=== PATIENT | male | born 1965 | race Caucasian/White ===

== ENCOUNTER 2021-03-15 13:11 | Emergency (ER) | payer OTHER ==
[~2021-03-15] VITALS: Ht 188 cm; Wt 138.3 kg
[2021-03-15 13:23] VITALS: BP_SYST 153
[2021-03-15] MEDS ORDERED: BACITRACIN 1 GM OINT TP ONE ×2 (14:58→15:00)
[2021-03-15] MEDS ORDERED: DIPH-TET-PERTUS Vaccine 0.5 ML VIAL (ADACEL) I.M. ONE (15:00)
[2021-03-15] MEDS ORDERED: POVI88.72 TP (15:02)
[2021-03-15] MEDS ORDERED: NEOM28.36 TP (15:02)
[2021-03-15 15:26] VITALS: BP_SYST 149
== END 2021-03-15 15:25 | disposition home or self-care (01) ==
LOC: SED 13:11
DX: S61.411A Laceration without foreign body of right hand, initial encounter (principal); Z79.899 Other long term (current) drug therapy; W45.8XXA Other foreign body or object entering through skin, initial encounter; Y93.64 Activity, baseball; Y92.89 Other specified places as the place of occurrence of the external cause; Y99.8 Other external cause status
CPT/HCPCS: 90715; 99283

== ENCOUNTER 2021-11-18 03:22 | Inpatient (IN) | payer OTHER ==
[2021-11-18] VITALS (7 sets, daily range): BP systolic 112–160
[~2021-11-18] VITALS: Ht 185.4 cm; Wt 137.9 kg
[~2021-11-18 03:22] MED LIST: NEOM28.36 TP; POVI88.72 TP
[2021-11-18 04:09] LABS: ANION GAP 10 (5-15); BASOPHILS # (AUTO) 0.2 K/uL (0.0-0.2); BASOPHILS % (AUTO) 2.8 % (0.0-2.0); CALCIUM 8.3 mg/dL (8.4-11.0); CHLORIDE 103 mmol/L (98-107); CREATININE 1.25 mg/dL (0.55-1.30); EOSINOPHILS # (AUTO) 0.1 K/uL (0.0-0.4); EOSINOPHILS % (AUTO) 0.8 % (0.0-4.0); GLUCOSE 103 mg/dL (70-99); HEMATOCRIT 40.9 % (36-54); LYMPHOCYTES # (AUTO) 0.5 K/uL (1.0-5.5); LYMPHOCYTES % (AUTO) 6.4 % (20.5-51.5); MEAN CORPUSCULAR HEMOGLOBIN 29 pg (27-31); MEAN CORPUSCULAR HGB CONC 34 % (32-36); MEAN CORPUSCULAR VOLUME 83 fL (79.0-98.0); MONOCYTES # (AUTO) 0.9 K/uL (0.0-1.0); MONOCYTES % (AUTO) 11.6 % (1.7-9.3); NEUTROPHILS # (AUTO) 5.9 K/uL (1.8-7.7); NEUTROPHILS % (AUTO) 78.4 % (40.0-70.0); PLATELET COUNT (AUTO) 200 K/uL (130-430); POTASSIUM 3.8 mmol/L (3.5-5.1); RED BLOOD CELL COUNT(AUTO) 4.91 MIL/uL (4.2-6.2); RED CELL DISTRIBUTION WIDTH 13.7 % (9.0-15.0); SODIUM SERUM 136 mmol/L (136-145); UREA NITROGEN, BLOOD 21 mg/dL (8-21); WHITE BLOOD COUNT (AUTO) 7.5 K/uL (4.8-10.8)
[2021-11-18 04:17] LABS: ALANINE AMINOTRANSFERASE 26 U/L (12-78); ALBUMIN 3.5 g/dL (3.4-4.8); ASPARTATE AMINOTRANSFERASE 17 U/L (10-37); TOTAL BILIRUBIN 0.5 mg/dL (0.0-1.0)
[2021-11-18 04:18] LABS: PROTHROMBIN TIME 10.7 SECS (9.5-12.5)
[2021-11-18 04:19] LABS: GFR AFRICAN AMERICAN 77 mL/min (>90)
[2021-11-18 04:47] LABS: FIBRINOGEN 366 mg/dL (200-400)
[2021-11-18 04:56] LABS: C-REACTIVE PROTEIN QUANT 5.7 mg/dL (0-0.5)
[2021-11-18] MEDS ORDERED: cefTRIAXone 1 GM IVPB PREMIX 50 ML IV ONE (06:15)
[2021-11-18] MEDS ORDERED: AZITHROMYCIN 250 MG TABLET PO ONE (06:15)
[2021-11-18] MEDS ORDERED: DEXAMETHASONE SOD PHOSPHATE 4 MG/ML VIAL IVP ONE (06:15)
[2021-11-18 06:19] LABS: BILIRUBIN,URINE NEGATIVE (NEGATIVE); CLARITY/URINE CLEAR (CLEAR); COLOR,URINE YELLOW (YELLOW); GLUCOSE,URINE NEGATIVE (NEGATIVE); KETONES,URINE NEGATIVE (NEGATIVE); LEUKOCYTE ESTERASE ,URINE NEGATIVE (NEGATIVE); NITRITE, URINE NEGATIVE (NEGATIVE); PROTEIN URINE NEGATIVE (NEGATIVE); UROBILINOGEN,URINE 0.2 (0.2-1.0)
[2021-11-18 06:24] LABS: BLOOD, URINE TRACE (NEGATIVE)
[2021-11-18 06:28] LABS: BACTERIA,URINE FEW /HPF (None Seen); RBC,URINE 0-3 /HPF (0-3); WBC,URINE 0-3 /HPF (0-3)
[2021-11-18] MEDS ORDERED: NALOXONE HCL 0.4 MG/ML AMP (NARCAN) IVP PRN ×2 (08:15)
[2021-11-18] MEDS ORDERED: POTASSIUM CHLORIDE 20 MEQ TAB.PRT.SR PO PRN (08:15)
[2021-11-18] MEDS ORDERED: ZOLPIDEM TARTRATE 5 MG TABLET PO PRN (08:15)
[2021-11-18] MEDS ORDERED: LORazepam 2 MG/ML VIAL IVP PRN (08:15)
[2021-11-18] MEDS ORDERED: MAGNESIUM SULFATE 50 ML IV PRN (08:15)
[2021-11-18] MEDS ORDERED: ONDANSETRON HCL 4 MG/2 ML VIAL IVP PRN (08:15)
[2021-11-18] MEDS ORDERED: MORPHINE 2 MG/ML INJ. SYRINGE IVP PRN ×2 (08:15)
[2021-11-18] MEDS ORDERED: ACETAMINOPHEN 325 MG TABLET PO PRN ×2 (08:15→09:00)
[2021-11-18] MEDS ORDERED: MUPIROCIN 2% TOPICAL OINTMENT 22 GM NS PRN (08:15)
[2021-11-18] MEDS ORDERED: DOCUSATE SODIUM 100 MG CAPSULE PO PRN (08:15)
[2021-11-18] MEDS: ENOXAPARIN SODIUM 40 MG/0.4 ML SYRINGE SUBCUT SCH ×2 (10:18→19:00)
[2021-11-18] MEDS: DEXAMETHASONE SOD PHOSPHATE 10 MG/ML VIAL IVP SCH (10:19)
[2021-11-18] MEDS ORDERED: ALBUTEROL MDI INHALATION 8 GM INH INH PRN (15:15)
[2021-11-18] MEDS: AZITHROMYCIN 500 MG in NS 250 ML IV SCH (23:50)
[2021-11-19 00:15] VITALS: BP_SYST 130
[2021-11-19 06:30] LABS: BASOPHILS % (AUTO) 0.3 % (0.0-2.0); HEMATOCRIT 44.8 % (36-54); HEMOGLOBIN 15.1 g/dL (14.0-18.0); LYMPHOCYTES # (AUTO) 1.4 K/uL (1.0-5.5); MEAN CORPUSCULAR HEMOGLOBIN 29 pg (27-31); MEAN CORPUSCULAR HGB CONC 34 % (32-36); MEAN CORPUSCULAR VOLUME 85 fL (79.0-98.0); MONOCYTES # (AUTO) 0.9 K/uL (0.0-1.0); MONOCYTES % (AUTO) 9.4 % (1.7-9.3); NEUTROPHILS # (AUTO) 7.6 K/uL (1.8-7.7); NEUTROPHILS % (AUTO) 76.3 % (40.0-70.0); PLATELET COUNT (AUTO) 195 K/uL (130-430)
[2021-11-19 06:42] LABS: CALCIUM 8.3 mg/dL (8.4-11.0); CREATININE 1.04 mg/dL (0.55-1.30); POTASSIUM 3.7 mmol/L (3.5-5.1)
[2021-11-19 08:00] VITALS: BP_SYST 110
[2021-11-19] MEDS: DEXAMETHASONE SOD PHOSPHATE 10 MG/ML VIAL IVP SCH (09:09)
[2021-11-19] MEDS: ENOXAPARIN SODIUM 40 MG/0.4 ML SYRINGE SUBCUT SCH (09:09)
[2021-11-19] MEDS: NACL 0.9% 1,000 ML IV SCH ×2 (09:19→19:52)
[2021-11-19 12:36] VITALS: BP_SYST 131
[2021-11-19 16:33] VITALS: BP_SYST 137
[2021-11-19 20:00] VITALS: BP_SYST 132; BP_SYST 160
[2021-11-20 00:13] VITALS: BP_SYST 137
[2021-11-20] MEDS: AZITHROMYCIN 500 MG in NS 250 ML IV SCH (05:37)
[2021-11-20] MEDS: NACL 0.9% 1,000 ML IV SCH ×3 (05:38→18:06)
[2021-11-20 06:43] LABS: BASOPHILS % (AUTO) 0.6 % (0.0-2.0); EOSINOPHILS % (AUTO) 0.1 % (0.0-4.0); HEMOGLOBIN 14.8 g/dL (14.0-18.0); LYMPHOCYTES # (AUTO) 1.6 K/uL (1.0-5.5); MEAN CORPUSCULAR HEMOGLOBIN 29 pg (27-31); MEAN CORPUSCULAR HGB CONC 34 % (32-36); MEAN CORPUSCULAR VOLUME 83 fL (79.0-98.0); MONOCYTES # (AUTO) 0.6 K/uL (0.0-1.0); MONOCYTES % (AUTO) 11.4 % (1.7-9.3); NEUTROPHILS # (AUTO) 3.2 K/uL (1.8-7.7); NEUTROPHILS % (AUTO) 57.9 % (40.0-70.0); PLATELET COUNT (AUTO) 214 K/uL (130-430); RED BLOOD CELL COUNT(AUTO) 5.18 MIL/uL (4.2-6.2); RED CELL DISTRIBUTION WIDTH 13.8 % (9.0-15.0); WHITE BLOOD COUNT (AUTO) 5.4 K/uL (4.8-10.8)
[2021-11-20 07:17] LABS: ALBUMIN 3.3 g/dL (3.4-4.8); C-REACTIVE PROTEIN QUANT 2.5 mg/dL (0-0.5); CALCIUM 7.9 mg/dL (8.4-11.0); CREATININE 0.98 mg/dL (0.55-1.30); POTASSIUM 3.6 mmol/L (3.5-5.1); TOTAL BILIRUBIN 0.2 mg/dL (0.0-1.0)
[2021-11-20 08:00] VITALS: BP_SYST 157
[2021-11-20] MEDS: DEXAMETHASONE SOD PHOSPHATE 10 MG/ML VIAL IVP SCH (10:34)
[2021-11-20] MEDS: ENOXAPARIN SODIUM 40 MG/0.4 ML SYRINGE SUBCUT SCH (10:35)
[2021-11-20 12:37] VITALS: BP_SYST 135
[2021-11-20 16:37] VITALS: BP_SYST 126
[2021-11-20 20:00] VITALS: BP_SYST 131
[2021-11-21] MEDS: AZITHROMYCIN 500 MG in NS 250 ML IV SCH ×2 (00:14→23:14)
[2021-11-21] MEDS: NACL 0.9% 1,000 ML IV SCH ×2 (04:55→15:47)
[2021-11-21 06:45] LABS: BASOPHILS % (AUTO) 0.3 % (0.0-2.0); EOSINOPHILS % (AUTO) 0.1 % (0.0-4.0); HEMATOCRIT 41.8 % (36-54); HEMOGLOBIN 14.4 g/dL (14.0-18.0); LYMPHOCYTES % (AUTO) 27.3 % (20.5-51.5); MEAN CORPUSCULAR HEMOGLOBIN 29 pg (27-31); MEAN CORPUSCULAR HGB CONC 34 % (32-36); MEAN CORPUSCULAR VOLUME 83 fL (79.0-98.0); MONOCYTES # (AUTO) 0.8 K/uL (0.0-1.0); MONOCYTES % (AUTO) 10.2 % (1.7-9.3); NEUTROPHILS # (AUTO) 4.6 K/uL (1.8-7.7); NEUTROPHILS % (AUTO) 62.1 % (40.0-70.0); PLATELET COUNT (AUTO) 227 K/uL (130-430); RED BLOOD CELL COUNT(AUTO) 5.03 MIL/uL (4.2-6.2); RED CELL DISTRIBUTION WIDTH 13.5 % (9.0-15.0); WHITE BLOOD COUNT (AUTO) 7.4 K/uL (4.8-10.8)
[2021-11-21 07:04] LABS: ALBUMIN 3.3 g/dL (3.4-4.8); BILIRUBIN,DIRECT 0.4 mg/dL (0.0-0.3); CALCIUM 7.9 mg/dL (8.4-11.0); POTASSIUM 4.1 mmol/L (3.5-5.1); TOTAL BILIRUBIN 0.3 mg/dL (0.0-1.0)
[2021-11-21 07:56] VITALS: BP_SYST 131
[2021-11-21 08:00] VITALS: BP_SYST 132
[2021-11-21] MEDS: DEXAMETHASONE SOD PHOSPHATE 10 MG/ML VIAL IVP SCH (09:05)
[2021-11-21] MEDS: ENOXAPARIN SODIUM 40 MG/0.4 ML SYRINGE SUBCUT SCH (09:06)
[2021-11-21] MEDS: PANTOPRAZOLE SODIUM 40 MG TAB PO SCH (09:53)
[2021-11-21 12:00] VITALS: BP_SYST 130
[2021-11-21 16:40] VITALS: BP_SYST 131
[2021-11-21 19:48] VITALS: BP_SYST 127
[2021-11-21 23:18] VITALS: BP_SYST 128
[2021-11-22] MEDS: NACL 0.9% 1,000 ML IV SCH ×2 (03:20→14:34)
[2021-11-22 07:12] LABS: BASOPHILS % (AUTO) 0.3 % (0.0-2.0); EOSINOPHILS % (AUTO) 0.2 % (0.0-4.0); HEMATOCRIT 42.1 % (36-54); HEMOGLOBIN 14.6 g/dL (14.0-18.0); LYMPHOCYTES # (AUTO) 2.2 K/uL (1.0-5.5); LYMPHOCYTES % (AUTO) 24.5 % (20.5-51.5); MEAN CORPUSCULAR HEMOGLOBIN 29 pg (27-31); MEAN CORPUSCULAR HGB CONC 35 % (32-36); MEAN CORPUSCULAR VOLUME 83 fL (79.0-98.0); MONOCYTES # (AUTO) 0.8 K/uL (0.0-1.0); MONOCYTES % (AUTO) 8.5 % (1.7-9.3); NEUTROPHILS % (AUTO) 66.5 % (40.0-70.0); PLATELET COUNT (AUTO) 244 K/uL (130-430); RED BLOOD CELL COUNT(AUTO) 5.07 MIL/uL (4.2-6.2); RED CELL DISTRIBUTION WIDTH 13.5 % (9.0-15.0)
[2021-11-22 07:34] LABS: ALBUMIN 3.3 g/dL (3.4-4.8); BILIRUBIN,DIRECT 0.4 mg/dL (0.0-0.3); CREATININE 0.98 mg/dL (0.55-1.30); POTASSIUM 3.9 mmol/L (3.5-5.1); TOTAL BILIRUBIN 0.3 mg/dL (0.0-1.0)
[2021-11-22 08:00] VITALS: BP_SYST 134
[2021-11-22] MEDS ORDERED: DEC4 PO (08:42)
[2021-11-22] MEDS ORDERED: DOXY100T2 PO (08:42)
[2021-11-22] MEDS ORDERED: APIX2.5T PO (08:42)
[2021-11-22] MEDS: DEXAMETHASONE SOD PHOSPHATE 10 MG/ML VIAL IVP SCH (08:55)
[2021-11-22] MEDS: PANTOPRAZOLE SODIUM 40 MG TAB PO SCH (08:55)
[2021-11-22] MEDS: ENOXAPARIN SODIUM 40 MG/0.4 ML SYRINGE SUBCUT SCH (08:56)
[2021-11-22 12:00] VITALS: BP_SYST 130
[2021-11-22 15:42] VITALS: BP_SYST 129
[2021-11-22 16:36] VITALS: BP_SYST 130
== END 2021-11-22 17:30 | disposition home or self-care (01) | DRG 177 ==
LOC: SED 03:22 → SMU 06:14
PROVIDERS: ADMIT General Practice; ATTEND General Practice
PROC: XW033E5 Introduction of Remdesivir Anti-infective into Peripheral Vein, Percutaneous Approach, New Technology Group 5 (ICD-10-PCS; principal; 2021-11-19)
DX: U07.1 COVID-19 (principal); J96.01 Acute respiratory failure with hypoxia; J12.82 Pneumonia due to coronavirus disease 2019; Z68.41 Body mass index [BMI] 40.0-44.9, adult; E66.01 Morbid (severe) obesity due to excess calories; K21.9 Gastro-esophageal reflux disease without esophagitis; F17.200 Nicotine dependence, unspecified, uncomplicated; E83.51 Hypocalcemia; Z90.49 Acquired absence of other specified parts of digestive tract
CPT/HCPCS: 36415; 36600; 71045; 80048; 80053; 80076; 81000; 82550; 82803-TC; 83036; 83605; 83615; 83735; 83880; 84484; 85025; 85379; 85384; 85610-TC; 85730-TC; 86140; 87040; 87086; 93005; 94664; 94760; 96365; 99291; J0456; J0696; J1100; J1650; J7050; J7060; Q0144

== ENCOUNTER 2022-03-13 07:59 | Emergency (ER) | payer OTHER ==
[~2022-03-13] VITALS: Ht 188 cm; Wt 158.8 kg
[~2022-03-13 07:59] MED LIST changes: +APIX2.5T PO; +DEC4 PO; +DOXY100T2 PO; -NEOM28.36 TP; -POVI88.72 TP
[2022-03-13 08:10] VITALS: BP_SYST 143
--- NOTE | 2022-03-13 08:30 | NUR ---
PT RECEIVED FROM TRIAGE NURSE. PT IS HERE WITH C/O NECK PAIN SINCE LAST NIGHT 9/10 PAIN. PT IS AAOX4. ON R/A. DENIES N/V/D/C. NORMAL S1S2. DISTAL PULSES NORMAL. SKIN CDI, NO EDEMA. SIDERAILS UP X2.
--- NOTE | 2022-03-13 08:45 | NUR ---
DR. BHATIA AT BEDSIDE TO ASSESS PT.
[2022-03-13] MEDS ORDERED: DIAZEPAM 5 MG TABLET (VALIUM) PO ONE (09:00)
[2022-03-13] MEDS ORDERED: IBUPROFEN 600 MG TABLET PO ONE (09:00)
[2022-03-13] MEDS ORDERED: MORPHINE 4 MG INJ. 4 MG/ML VIAL IM ONE (09:00)
[2022-03-13] MEDS ORDERED: METH-634 PO (09:06)
[2022-03-13] MEDS ORDERED: OXYC-128 PO (09:06)
[2022-03-13] MEDS ORDERED: IBUP-1969 PO (09:06)
[2022-03-13] MEDS ORDERED: MORPHINE 2 MG/ML INJ. SYRINGE ONE (09:08)
--- NOTE | 2022-03-13 09:12 | NUR ---
PT TAKEN TO CT SCAN. IVP 8MG IVP GIVEN FOR NECK PAIN. MORPHINE 8MG UNAVAILABLE, OVER-RIDED MED AND DESIREE PRATT WITNESSED.
[2022-03-13 12:10] VITALS: BP_SYST 140
--- NOTE | 2022-03-13 12:10 | NUR ---
Patient given written and verbal discharge instructions and verbalizes understanding. ER MD discussed with patient the results and treatment provided. Patient in stable condition. ID arm band removed. IV catheter removed intact and dressing applied, no active bleeding. Rx of IBUPROFEN, METHOCARBAMOL, OXYDONDONE given. Patient educated on pain management and to follow up with PMD. Pain Scale 0/10. Opportunity for questions provided and answered. Medication side effect fact sheet provided.
== END 2022-03-13 12:10 | disposition home or self-care (01) ==
LOC: SED 07:59
DX: M62.838 Other muscle spasm (principal); M54.2 Cervicalgia; I10 Essential (primary) hypertension; Z79.899 Other long term (current) drug therapy
CPT/HCPCS: 99285; 72125; 76376; 96372; J2270

== ENCOUNTER 2022-05-15 22:18 | Inpatient (IN) | payer OTHER ==
[~2022-05-15] VITALS: Ht 188 cm; Wt 140.6 kg
[~2022-05-15 22:18] MED LIST changes: +IBUP-1969 PO; +METH-634 PO; +OXYC-128 PO
[2022-05-15] MEDS ORDERED: ALBUTEROL SULFATE 0.083% 2.5 MG/3 ML VIAL.NEB INH ONE (22:45)
[2022-05-15 23:00] VITALS: BP_SYST 152
[2022-05-15 23:16] LABS: BASOPHILS # (AUTO) 0.1 K/uL (0.0-0.2); MEAN CORPUSCULAR VOLUME 83 fL (79.0-98.0); MONOCYTES # (AUTO) 0.8 K/uL (0.0-1.0); RED CELL DISTRIBUTION WIDTH 14.1 % (9.0-15.0)
[2022-05-15 23:25] LABS: ANION GAP 12 (5-15); CALCIUM 8.3 mg/dL (8.4-11.0); CHLORIDE 100 mmol/L (98-107); CREATININE 1.17 mg/dL (0.55-1.30); GLUCOSE 96 mg/dL (70-99); UREA NITROGEN, BLOOD 14 mg/dL (8-21)
[2022-05-15 23:31] LABS: BASOPHILS % (AUTO) 0.8 % (0.0-2.0); EOSINOPHILS % (AUTO) 0.1 % (0.0-4.0); HEMATOCRIT 41.2 % (36-54); HEMOGLOBIN 14.2 g/dL (14.0-18.0); LYMPHOCYTES % (AUTO) 14.8 % (20.5-51.5); MEAN CORPUSCULAR HEMOGLOBIN 29 pg (27-31); MEAN CORPUSCULAR HGB CONC 34 % (32-36); NEUTROPHILS # (AUTO) 5.1 K/uL (1.8-7.7); NEUTROPHILS % (AUTO) 72.3 % (40.0-70.0); PLATELET COUNT (AUTO) 240 K/uL (130-430); RED BLOOD CELL COUNT(AUTO) 4.95 MIL/uL (4.2-6.2)
[2022-05-15 23:32] LABS: ALANINE AMINOTRANSFERASE 24 U/L (12-78); ALBUMIN 3.7 g/dL (3.4-4.8); ASPARTATE AMINOTRANSFERASE 18 U/L (10-37); TOTAL BILIRUBIN 0.5 mg/dL (0.0-1.0)
[2022-05-15 23:37] LABS: GFR AFRICAN AMERICAN 83 mL/min (>90)
[2022-05-15] MEDS ORDERED: ACETAMINOPHEN 325 MG TABLET PO ONE (23:45)
[2022-05-16] MEDS ORDERED: KETOROLAC TROMETHAMINE 30 MG VIAL IVP ONE (01:45)
[2022-05-16] MEDS ORDERED: OSELTAMIVIR PHOSPHATE 75 MG CAPSULE PO ONE (03:30)
[2022-05-16] MEDS ORDERED: OMEP20TA20 (07:24)
[2022-05-16] MEDS ORDERED: ONDANSETRON HCL 4 MG/2 ML VIAL IVP PRN (08:00)
[2022-05-16] MEDS ORDERED: MAGNESIUM SULFATE 50 ML IV PRN (08:00)
[2022-05-16] MEDS ORDERED: POTASSIUM CHLORIDE 20 MEQ TAB.PRT.SR PO PRN (08:00)
[2022-05-16] MEDS ORDERED: MORPHINE 2 MG/ML INJ. SYRINGE IVP PRN ×2 (08:00)
[2022-05-16] MEDS ORDERED: DOCUSATE SODIUM 100 MG CAPSULE PO PRN (08:00)
[2022-05-16] MEDS ORDERED: MUPIROCIN 2% TOPICAL OINTMENT 22 GM NS PRN (08:00)
[2022-05-16] MEDS ORDERED: IPRATROPIUM/ALBUTEROL SULFATE 3 ML AMPUL.NEB (DUONEB) INH PRN (09:30)
[2022-05-16] MEDS ORDERED: methylPREDNISolone SOD SUCC/PF 62.5 MG/ML VIAL IVP ONE (09:45)
[2022-05-16] MEDS ORDERED: BUDESONIDE 0.5 MG/2 ML AMPUL.NEB INH ONE (09:45)
[2022-05-16 10:00] VITALS: BP_SYST 134
[2022-05-16] MEDS: ASCORBIC ACID 500 MG TABLET PO SCH (12:34)
[2022-05-16] MEDS: OSELTAMIVIR PHOSPHATE 75 MG CAPSULE PO SCH ×2 (12:35→20:54)
[2022-05-16] MEDS: ACETAMINOPHEN 325 MG TABLET PO PRN ×2 (13:20→13:21)
[2022-05-16 20:00] VITALS: BP_SYST 128; BP_SYST 139
[2022-05-16] MEDS: methylPREDNISolone SOD SUCC/PF 62.5 MG/ML VIAL IVP SCH (20:54)
[2022-05-16] MEDS: ENOXAPARIN SODIUM 40 MG/0.4 ML SYRINGE SUBCUT SCH (20:54)
[2022-05-17] VITALS: BP_SYST 119
[2022-05-17 07:20] LABS: CALCIUM 9.2 mg/dL (8.4-11.0); CREATININE 0.99 mg/dL (0.55-1.30)
[2022-05-17 08:00] VITALS: BP_SYST 136
[2022-05-17 08:04] LABS: BASOPHILS % (AUTO) 0.2 % (0.0-2.0); HEMATOCRIT 47.1 % (36-54); HEMOGLOBIN 16.2 g/dL (14.0-18.0); LYMPHOCYTES # (AUTO) 0.8 K/uL (1.0-5.5); MEAN CORPUSCULAR HEMOGLOBIN 29 pg (27-31); MEAN CORPUSCULAR HGB CONC 34 % (32-36); MEAN CORPUSCULAR VOLUME 83 fL (79.0-98.0); MONOCYTES # (AUTO) 0.5 K/uL (0.0-1.0); MONOCYTES % (AUTO) 6.1 % (1.7-9.3); NEUTROPHILS # (AUTO) 6.8 K/uL (1.8-7.7); NEUTROPHILS % (AUTO) 83.7 % (40.0-70.0); PLATELET COUNT (AUTO) 276 K/uL (130-430); RED BLOOD CELL COUNT(AUTO) 5.66 MIL/uL (4.2-6.2); RED CELL DISTRIBUTION WIDTH 14.1 % (9.0-15.0); WHITE BLOOD COUNT (AUTO) 8.2 K/uL (4.8-10.8)
[2022-05-17] MEDS: BUDESONIDE 0.5 MG/2 ML AMPUL.NEB INH SCH ×2 (09:20→20:13)
[2022-05-17 11:38] VITALS: BP_SYST 154
[2022-05-17] MEDS: OSELTAMIVIR PHOSPHATE 75 MG CAPSULE PO SCH ×2 (11:58→21:36)
[2022-05-17] MEDS: methylPREDNISolone SOD SUCC/PF 62.5 MG/ML VIAL IVP SCH ×2 (11:58→21:36)
[2022-05-17] MEDS: ASCORBIC ACID 500 MG TABLET PO SCH (11:58)
[2022-05-17] MEDS: ACETAMINOPHEN 325 MG TABLET PO PRN ×2 (11:59)
[2022-05-17 18:00] VITALS: BP_SYST 130
[2022-05-17 20:00] VITALS: BP_SYST 135
[2022-05-17] MEDS: ENOXAPARIN SODIUM 40 MG/0.4 ML SYRINGE SUBCUT SCH (21:36)
[2022-05-18] VITALS: BP_SYST 115
[2022-05-18 07:49] LABS: CALCIUM 8.3 mg/dL (8.4-11.0); CREATININE 1.01 mg/dL (0.55-1.30)
[2022-05-18 08:00] VITALS: BP_SYST 120; BP_SYST 134
[2022-05-18 08:19] LABS: BASOPHILS % (AUTO) 0.3 % (0.0-2.0); HEMATOCRIT 44.2 % (36-54); HEMOGLOBIN 15.1 g/dL (14.0-18.0); LYMPHOCYTES # (AUTO) 0.9 K/uL (1.0-5.5); LYMPHOCYTES % (AUTO) 8.2 % (20.5-51.5); MEAN CORPUSCULAR HEMOGLOBIN 28 pg (27-31); MEAN CORPUSCULAR HGB CONC 34 % (32-36); MEAN CORPUSCULAR VOLUME 83 fL (79.0-98.0); MONOCYTES # (AUTO) 0.4 K/uL (0.0-1.0); NEUTROPHILS # (AUTO) 9.8 K/uL (1.8-7.7); NEUTROPHILS % (AUTO) 87.5 % (40.0-70.0); PLATELET COUNT (AUTO) 302 K/uL (130-430); RED CELL DISTRIBUTION WIDTH 13.6 % (9.0-15.0)
[2022-05-18 08:54] LABS: WHITE BLOOD COUNT (AUTO) 11.2 K/uL (4.8-10.8)
[2022-05-18] MEDS: BUDESONIDE 0.5 MG/2 ML AMPUL.NEB INH SCH (09:11)
[2022-05-18] MEDS ORDERED: OSEL75CA PO (11:50)
[2022-05-18 12:00] VITALS: BP_SYST 134
[2022-05-18 12:12] VITALS: BP_SYST 120
[2022-05-18] MEDS: OSELTAMIVIR PHOSPHATE 75 MG CAPSULE PO SCH (12:26)
[2022-05-18] MEDS: ASCORBIC ACID 500 MG TABLET PO SCH (12:26)
[2022-05-18] MEDS: methylPREDNISolone SOD SUCC/PF 62.5 MG/ML VIAL IVP SCH (12:26)
== END 2022-05-18 12:55 | disposition home or self-care (01) | DRG 177 ==
LOC: SED 22:18 → STU 05-16 03:17
PROVIDERS: ADMIT Family Medicine; ATTEND Family Medicine
PROC: XW033F5 Introduction of Other New Technology Therapeutic Substance into Peripheral Vein, Percutaneous Approach, New Technology Group 5 (ICD-10-PCS; principal; 2022-05-16)
DX: U07.1 COVID-19 (principal); J96.00 Acute respiratory failure, unspecified whether with hypoxia or hypercapnia; E87.1 Hypo-osmolality and hyponatremia; J44.1 Chronic obstructive pulmonary disease with (acute) exacerbation; E83.51 Hypocalcemia; F17.200 Nicotine dependence, unspecified, uncomplicated; J11.1 Influenza due to unidentified influenza virus with other respiratory manifestations; E66.9 Obesity, unspecified; Z79.1 Long term (current) use of non-steroidal anti-inflammatories (NSAID); Z79.899 Other long term (current) drug therapy; Z68.39 Body mass index [BMI] 39.0-39.9, adult
CPT/HCPCS: 36415; 71045; 80048; 80053; 83605; 83735; 83880; 84484; 85025; 87040; 93005; 94640; 94760; 96374; 99285; G0378; G9035; J1650; J1885; J2270; J2930; J7613; J7626